=== PATIENT | female | born 1950 | race Caucasian/White ===

== ENCOUNTER → 2017-02-18 | Outpatient (CLI) | payer MEDICARE, OTHER ==
[~2017-02-18] MED LIST: AMLO5TAB2 PO; BRIM5DRO3 EACHEYE; BRIN10DR RIGHTEYE; DULO30CA2 PO; LATA2.5D3 EACHEYE; LEVO25TA2 PO; MONT10TA9 PO; OLME1TAB5 PO; TRAM50TA2 PO; TRAZ50TA18 PO
== END | disposition home or self-care (01) ==
LOC: STAR 11:37
PROVIDERS: ATTEND Orthopaedic Surgery
DX: Z01.810 Encounter for preprocedural cardiovascular examination (principal); M17.11 Unilateral primary osteoarthritis, right knee
CPT/HCPCS: 87081; 93005